=== PATIENT | male | born 1950 | race Caucasian/White ===

== ENCOUNTER 2019-04-03 10:19 | Outpatient (CLI) | payer MEDICARE, OTHER, SELFPAY ==
--- NOTE | 2019-04-03 | US_ITS ---
WS: [id number] ULTRASOUND RENAL TECHNIQUE: Ultrasound examination of both kidneys. CLINICAL INFORMATION: HEMATURIA COMPARISON: None. FINDINGS: RIGHT: Right kidney is normal in size and appearance. Echogenicity: Normal. Hydronephrosis: None. Perinephric fluid: None. Right kidney measures: 14.3 cm x 7.0 cm x 6.3 cm. LEFT: 1.4 x 1.4 x 0.9 cm echogenic solid lesion upper pole right kidney likely represents angiomyolipoma. Echogenicity: Normal. Hydronephrosis: None. Perinephric fluid: None. Left kidney measures: 13.9 cm x 7.5 cm x 6.2 cm. Normal visualized aorta. Bladder is decompressed. US/US renal BI* [id number] IMPRESSION: 1. 1.4 x 1.4 x 0.9 cm echogenic solid lesion upper pole right kidney likely re presents angiomyolipoma. Recommend further evaluation with with contrast-enhanc ed CT abdomen pelvis. 2. No hydronephrosis in either kidney. 3. Bladder is decompressed.
== END 2019-04-03 10:20 | disposition home or self-care (01) ==
LOC: RADOUTREAD 04-04 07:15
PROVIDERS: Family Provider Family Medicine; PCP Family Medicine; Visit Provider Family Medicine
DX: Z76.89 Persons encountering health services in other specified circumstances (principal)

== ENCOUNTER 2019-04-16 09:12 | Outpatient (CLI) | payer MEDICARE, OTHER, SELFPAY ==
--- NOTE | 2019-04-16 09:29 | CT_ITS ---
WS: [id number] CT ABDOMEN AND PELVIS WITH CONTRAST HISTORY: RIGHT RENAL MASS TECHNIQUE: Imaging performed of the abdomen and pelvis with IV contrast. Single phase imaging of the abdomen. Coronal and sagittal reformats are submitted. All CT scans at [facility] use at least one of these dose optimization techniques: automated exposure control; mA and/or kV adjustment per patient size (includes targeted exams where dose is matched to clinical indication); or iterativ e reconstruction. IV CONTRAST: Omnipaque 300; 95 mL IV. Oral contrast: No DLP: 2250.79 mGycm COMPARISON: Renal ultrasound 04/03/2019. Lower thorax: 4 mm nodule at the RIGHT lung base. Heart is normal size. No hiatal hernia. Liver/biliary system: Normal size with no intrahepatic dilatation. Gallbladder: Tiny stone within the gallbladder along the dependent portion. No adjacent bile duct dil atation or acute cholecystitis. Pancreas: Normal. Spleen: Normal. Adrenal glands: Normal. Right kidney: Numerous low-attenuation masses throughout the kidney. The largest measures 2.7 cm in t he posterior upper pole. No definite angiomyolipoma is identified. There is a scar containing fat whi ch may represent the finding on the recent ultrasound. There is mild cortical scarring. No solid mass or obstruction. Left kidney: Normal size kidney with a few scattered hypodensities. No solid mass or obstruction. Aorta: Normal. Lymphadenopathy: None. Free fluid: None. GI tract: Normal appendix. No GI tract obstruction. There is mild constipation without significant di verticular disease. No obstruction. Abdominal wall: Unremarkable abdominal wall. No hernia. Pelvis: Central prostate gland calcifications. No free fluid or adenopathy in the pelvis. No inguinal lymph nodes. Bones: Thoracic spondylosis. No osteoblastic or osteolytic bone disease. T10 and T11 hemangiomas. Carl ateral SI joint partial fusion. 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 CT/CT abdomen pelvis w con* [id number] IMPRESSION: 1. Bilateral renal cysts with cortical thinning and scarring. No solid mass id entified. 2. Cholelithiasis. 3. Mild constipation.
[2019-04-16 09:59] LABS: Blood Urea Nitrogen 13 mg/dL (8-23); Glomerular Filtration Rate 83.7 mL/min (90-130)
[2019-04-16] MEDS: iohexol 300 mg/mL 100 mL Btl IV (10:06)
== END 2019-04-16 09:13 | disposition home or self-care (01) ==
LOC: RADWPI 09:20
PROVIDERS: Family Provider Family Medicine; PCP Family Medicine; Visit Provider Family Medicine
DX: D30.01 Benign neoplasm of right kidney (principal); Z01.812 Encounter for preprocedural laboratory examination; N28.1 Cyst of kidney, acquired; K80.20 Calculus of gallbladder without cholecystitis without obstruction; K59.00 Constipation, unspecified
CPT/HCPCS: 74177; 82565; 84520; Q9967